=== PATIENT | male | born 1990 | race African-American/Black ===

== ENCOUNTER 2016-07-17 12:29 | Emergency (ER) | payer SELFPAY ==
[~2016-07-17] VITALS: Ht 185.4 cm; Wt 83.6 kg
[2016-07-17] MEDS ORDERED: ALBU0.424 IH (12:34)
[2016-07-17] MEDS ORDERED: HYDROCODONE/ACETAMINOPHEN 5-325 MG TABLET PO ONE (13:00)
[2016-07-17 13:02] VITALS: BP 139/81
== END 2016-07-17 14:38 | disposition home or self-care (01) ==
LOC: EMS 12:31
DX: S00.93XA Contusion of unspecified part of head, initial encounter (principal); J45.909 Unspecified asthma, uncomplicated; V49.9XXA Car occupant (driver) (passenger) injured in unspecified traffic accident, initial encounter; Y93.89 Activity, other specified; Y92.89 Other specified places as the place of occurrence of the external cause; Y99.8 Other external cause status
CPT/HCPCS: 70450; 99284